=== PATIENT | male | born 1945 | race Asian ===

== ENCOUNTER 2017-02-13 15:56 | Inpatient (IN) | payer MEDICARE, MEDICAID ==
[~2017-02-13] VITALS: Ht 170.2 cm; Wt 77.1 kg
[~2017-02-13 15:56] MED LIST: UNOBMED
[2017-02-13 15:59] VITALS: BP 146/58
--- NOTE | 2017-02-13 16:55 | Diagnostic Imaging Report ---
Indication: Back pain Technique: Continuous helical transaxial imaging of the lumbar spine was obtained from the lung bases to the pubic symphysis. No IV contrast was administered. Coronal 2-D reformats were also obtained. Study obtained in a Siemens sensation [address] Total Dose length Product (DLP): [address] Dose Index Volume (CTDIvol): 2.25, 13.8 mGy Comparison: None Findings: There is evidence of acute, mild fracture of the superior plate of L2. There is no retropulsion associated with this. Fracture seen as a linear focus of radiolucency along the subchondral margin of the inferior endplate. This primarily involves the anterior aspect of the superior endplate. Bones are osteopenic. There is mild anterolisthesis at L4-5. There is interspinous hardware at this level. There is hypertrophy of the facets noted within the lower part of the lumbar spine moderate in degree. The aorta and iliac arteries show moderate calcification. Impression: Acute, mild superior endplate fracture of L2. No retropulsion. Osteopenia. Mild anterolisthesis L4 on L5. Other degenerative changes as described above. Atherosclerotic vascular disease The CT scanner at [facility] is accredited by the [employer] and the scans are performed using dose optimization techniques as appropriate to a performed exam including Automatic Exposure control.
[2017-02-13 17:05] LABS: BASOPHILS % (AUTO) 0.8 % (0.0-2.0); EOSINOPHILS % (AUTO) 0.1 % (0.0-3.0); LYMPHOCYTES % (AUTO) 6.7 % (20.0-45.0); MEAN CORPUSCULAR HEMOGLOBIN 32.5 PG (27.0-31.0); MEAN CORPUSCULAR HGB CONC 31.6 G/DL (32.0-36.0); MEAN CORPUSCULAR VOLUME 103 FL (80-99); MEAN PLATELET VOLUME 6.7 FL (6.5-10.1); NEUTROPHILS % (AUTO) 83.5 % (45.0-75.0); PLATELET COUNT 160 K/UL (150-450); RED BLOOD COUNT 3.68 M/UL (4.70-6.10); RED CELL DISTRIBUTION WIDTH 11.2 % (11.6-14.8); WHITE BLOOD COUNT 10.1 K/UL (4.8-10.8)
[2017-02-13 17:24] LABS: ALANINE AMINOTRANSFERASE 49 U/L (12-78); ALBUMIN/GLOBULIN RATIO 0.9 (1.0-2.7); ANION GAP 9 (5-15); ASPARTATE AMINO TRANSFERASE 58 U/L (15-37); CARBON DIOXIDE 24 MMOL/L (21-32); CHLORIDE 102 MMOL/L (98-107); CKMB 1.4 NG/ML (0.0-3.6); CREATININE 1.4 MG/DL (0.55-1.30); POTASSIUM 3.7 MMOL/L (3.5-5.1); SODIUM 135 MMOL/L (136-145); TOTAL PROTEIN 6.7 G/DL (6.4-8.2)
[2017-02-13 17:53] LABS: APPEARANCE,URINE VERY CLOUDY; KETONES,URINE 2+ (NEGATIVE); LEUKOCYTE ESTERASE ,URINE 3+ (NEGATIVE); NITRITE,URINE POSITIVE (NEGATIVE); PH,URINE 6 (4.5-8.0); PROTEIN,URINE 3+ (NEGATIVE); UROBILINOGEN,URINE 1 MG/DL (0.0-1.0)
[2017-02-13 18:08] LABS: BACTERIA,URINE MANY /HPF; RBC,URINE 15-20 /HPF (0 - 0); SQUAMOUS EPITHELIAL CELL,UR OCCASIONAL /LPF (NONE/OCC); WBC,URINE 60-80 /HPF (0 - 0)
[2017-02-13 18:10] VITALS: BP 138/67
[2017-02-13] MEDS ORDERED: Morphine Sulfate 2mg/ml Inj IVP PRN (18:15)
[2017-02-13] MEDS ORDERED: Albuterol/Ipratropium 3ml neb HHN PRN (18:15)
[2017-02-13] MEDS ORDERED: cefTRIAXone 1 GM in NS 55 ML IVPB ONE (18:15)
[2017-02-13] MEDS ORDERED: Miralax 17gm pkt ORAL PRN (18:15)
[2017-02-13 20:00] VITALS: BP 144/74
[2017-02-13] MEDS ORDERED: Vancomycin 1 GM in D5W 275 ML IVPB SCH (22:00)
[2017-02-13] MEDS: Cefepime HCl 2 GM in D5W 110 ML IV SCH (22:04)
[2017-02-13] MEDS: Heparin 5000 units/ml inj SUBQ SCH (22:12)
--- NOTE | 2017-02-13 23:04 | Emergency Room Report ---
History of Present Illness General Chief Complaint: Pain Source: EMS Present Illness HPI 71-year-old M presents ED for evaluation. Patient was seen at clinic today for UTI. In the clinic patient had a mechanical fall landing on his back. Patient presents with back pain. 10 out of 10, dull, nonradiating. Patient is febrile in triage. Denies chest pain or shortness of breath. No other aggravating relieving factors. Denies any other associated symptoms Allergies: Coded Allergies: No Known Allergies (Unverified , 02/13/17) Patient History Past Medical History: none Past Surgical History: none Pertinent Family History: none Social History: Denies: smoking, alcohol use, drug use Immunizations: UTD Reviewed Nursing Documentation: PMH: Agreed, PSxH: Agreed Review of Systems All Other Systems: negative except mentioned in HPI Physical Exam Vital Signs Date Time Temp Pulse Resp B/P (MAP) Pulse Ox O2 Delivery O2 Flow Rate FiO2 02/13/17 15:49 100.9 108 18 131/77 99 02/13/17 18:10 Room Air Sp02 EP Interpretation: reviewed, normal General Appearance: no apparent distress, alert, GCS 15, non-toxic, mild distress Head: normocephalic, atraumatic Eyes: bilateral eye normal inspection, bilateral eye PERRL ENT: hearing grossly normal, normal pharynx, no angioedema, normal voice Neck: full range of motion, supple/symm/no masses Respiratory: chest non-tender, lungs clear, normal breath sounds, speaking full sentences Cardiovascular #1: regular rate, rhythm, no edema Cardiovascular #2: 2+ carotid (R), 2+ carotid (L), 2+ radial (R), 2+ radial (L) , 2+ dorsalis pedis (R), 2+ dorsalis pedis (L) Gastrointestinal: normal bowel sounds, non tender, soft, non-distended, no guarding, no rebound Rectal: deferred Genitourinary: normal inspection, no CVA tenderness, vertebral tenderness Musculoskeletal: back normal, gait/station normal, normal range of motion, non- tender Neurologic: alert, oriented x3, responsive, motor strength/tone normal, sensory intact, speech normal Psychiatric: judgement/insight normal, memory normal, mood/affect normal, no suicidal/homicidal ideation Reflexes: 3+ bicep (R), 3+ bicep (L), 3+ tricep (R), 3+ tricep (L), 3+ knee (R) , 3+ knee (L) Skin: normal color, no rash, warm/dry, well hydrated Lymphatic: no adenopathy Medical Decision Making Diagnostic Impression: Primary Impression: L2 vertebral fracture Qualified Codes: S32.029B - Unspecified fracture of second lumbar vertebra, initial encounter for open fracture Additional Impressions: UTI (urinary tract infection) Qualified Codes: N39.0 - Urinary tract infection, site not specified Renal insufficiency ER Course Hospital Course 71-year-old male presents ED with fever, back pain status post fall Differential diagnosis includes- UTI, pyelonephritis, back spasm, fx Clinical course Patient placed on stretcher. After initial history and physical I ordered labs , IV fluids, pain medications and CT scan Labs - no leukocytosis, Cr 1.4, LFTs normal, UA + bacteria CT scan shows L2 fx no focal neurloogical deficits Antibiotics given. Patient will be admitted to Dr. López I feel this is a highly complex case requiring extensive working including EKG/ Rhythm strip, Xray/CT/US, Blood/urine lab work, repeat exams while in ED, and administration of strong opiates/narcotics for pain control, admission to hospital or close patient follow up. Diagnosis - L2 fx, UTI, renal insufficiency Admitted to floor in serious condition Labs Test 02/13/17 16:36 02/13/17 17:38 White Blood Count 10.1 K/UL (4.8-10.8) Red Blood Count 3.68 M/UL (4.70-6.10) Hemoglobin 12.0 G/DL (14.2-18.0) Hematocrit 37.9 % (42.0-52.0) Mean Corpuscular Volume 103 FL (80-99) Mean Corpuscular Hemoglobin 32.5 PG (27.0-31.0) Mean Corpuscular Hemoglobin Concent 31.6 G/DL (32.0-36.0) Red Cell Distribution Width 11.2 % (11.6-14.8) Platelet Count 160 K/UL (150-450) Mean Platelet Volume 6.7 FL (6.5-10.1) Neutrophils (%) (Auto) 83.5 % (45.0-75.0) Lymphocytes (%) (Auto) 6.7 % (20.0-45.0) Monocytes (%) (Auto) 9.0 % (1.0-10.0) Eosinophils (%) (Auto) 0.1 % (0.0-3.0) Basophils (%) (Auto) 0.8 % (0.0-2.0) Sodium Level 135 MMOL/L (136-145) Potassium Level 3.7 MMOL/L (3.5-5.1) Chloride Level 102 MMOL/L (98-107) Carbon Dioxide Level 24 MMOL/L (21-32) Anion Gap 9 (5-15) Blood Urea Nitrogen 20 mg/dL (7-18) Creatinine 1.4 MG/DL (0.55-1.30) Estimat Glomerular Filtration Rate mL/min (>60) Glucose Level 151 MG/DL (74-106) Lactic Acid Level 1.40 mmol/L (0.66-2.22) Calcium Level 9.0 MG/DL (8.5-10.1) Total Bilirubin 0.5 MG/DL (0.2-1.0) Aspartate Amino Transf (AST/SGOT) 58 U/L (15-37) Alanine Aminotransferase (ALT/SGPT) 49 U/L (12-78) Alkaline Phosphatase 48 U/L (46-116) Total Creatine Kinase 757 U/L (26-308) Creatine Kinase MB 1.4 NG/ML (0.0-3.6) Creatine Kinase MB Relative Index 0.1 Troponin I 0.008 ng/mL (0.000-0.056) Total Protein 6.7 G/DL (6.4-8.2) Albumin 3.1 G/DL (3.4-5.0) Globulin 3.6 g/dL Albumin/Globulin Ratio 0.9 (1.0-2.7) Urine Color Yellow Urine Appearance Very cloudy Urine pH 6 (4.5-8.0) Urine Specific [place] 1.010 (1.005-1.035) Urine Protein 3+ (NEGATIVE) Urine Glucose (UA) Negative (NEGATIVE) Urine Ketones 2+ (NEGATIVE) Urine Occult Blood 5+ (NEGATIVE) Urine Nitrite Positive (NEGATIVE) Urine Bilirubin Negative (NEGATIVE) Urine Urobilinogen 1 MG/DL (0.0-1.0) Urine Leukocyte Esterase 3+ (NEGATIVE) Urine RBC 15-20 /HPF (0 - 0) Urine WBC 60-80 /HPF (0 - 0) Urine Squamous Epithelial Cells Occasional /LPF Urine Bacteria Many /HPF (NONE) CT/MRI/US Diagnostic Results CT/MRI/US Diagnostic Results : Imaging Test Ordered: CT L spine Impression L2 fx Last Vital Signs Date Time Temp Pulse Resp B/P (MAP) Pulse Ox O2 Delivery O2 Flow Rate FiO2 02/13/17 20:00 98.8 83 19 144/74 95 Room Air Status: improved Disposition: ADMITTED INPATIENT Condition: Serious Referrals: NON PHYSICIAN (PCP) FAM SELLERS M.D. Feb 13, 2017 23:04
[2017-02-14 00:55] VITALS: BP 140/79
[2017-02-14 04:00] VITALS: BP 135/60
[2017-02-14 08:29] LABS: BASOPHILS % (AUTO) 0.8 % (0.0-2.0); EOSINOPHILS % (AUTO) 0.3 % (0.0-3.0); LYMPHOCYTES % (AUTO) 12.7 % (20.0-45.0); MEAN CORPUSCULAR HEMOGLOBIN 34.8 PG (27.0-31.0); MEAN CORPUSCULAR HGB CONC 34.3 G/DL (32.0-36.0); MEAN CORPUSCULAR VOLUME 102 FL (80-99); MEAN PLATELET VOLUME 7.8 FL (6.5-10.1); MONOCYTES % (AUTO) 11.6 % (1.0-10.0); NEUTROPHILS % (AUTO) 74.7 % (45.0-75.0); PLATELET COUNT 165 K/UL (150-450); RED BLOOD COUNT 3.93 M/UL (4.70-6.10); WHITE BLOOD COUNT 9.1 K/UL (4.8-10.8)
[2017-02-14 08:46] VITALS: BP 143/64
[2017-02-14] MEDS: Heparin 5000 units/ml inj SUBQ SCH ×2 (09:01→22:00)
[2017-02-14] MEDS: Cefepime HCl 2 GM in D5W 110 ML IV SCH (09:01)
[2017-02-14 09:37] LABS: ALANINE AMINOTRANSFERASE 14 U/L (12-78); ALBUMIN/GLOBULIN RATIO 0.7 (1.0-2.7); ANION GAP 12 (5-15); ASPARTATE AMINO TRANSFERASE 54 U/L (15-37); CALCIUM 8.2 MG/DL (8.5-10.1); CARBON DIOXIDE 21 MMOL/L (21-32); CHLORIDE 107 MMOL/L (98-107); CREATININE 1.1 MG/DL (0.55-1.30); POTASSIUM 3.6 MMOL/L (3.5-5.1); SODIUM 140 MMOL/L (136-145); TOTAL PROTEIN 6.7 G/DL (6.4-8.2)
[2017-02-14 11:51] VITALS: BP 136/68
--- NOTE | 2017-02-14 14:59 | History and Physical ---
History of Present Illness General Date patient seen: Feb 14, 2017 Reason for Hospitalization: Pain Present Illness HPI 71-year-old Male with hx of HTN, parkinson presented to ED for evaluation a back pain after a mechanical fall landing on his back. Patient presents with back pain. 10 out of 10, dull, nonradiating. Patient was febrile in ER . Denies chest pain or shortness of breath. No other aggravating relieving factors. Denies any other associated symptoms. He was diagnosed to have UTI/ sepsis and fracture of L2. Allergies: Coded Allergies: No Known Allergies (Unverified , 02/13/17) Medication History Miscellaneous Medications Unable to Obtain Medications (Unable To Obtain Meds), (Reported) Patient History Healthcare decision maker Resuscitation status Full Code Advanced Directive on File Past Medical/Surgical History Past Medical/Surgical History: (1) Parkinson disease (2) HTN (hypertension) Review of Systems All Other Systems: negative except mentioned in HPI Physical Exam General Appearance: WD/WN, no apparent distress Lines, tubes and drains: peripheral HEENT: normocephalic, atraumatic Neck: non-tender, normal alignment Respiratory/Chest: chest wall non-tender, lungs clear, normal breath sounds Breasts: no masses Cardiovascular/Chest: normal peripheral pulses, normal rate Abdomen: normal bowel sounds, non tender Genitourinary/Rectal: normal genital exam Extremities: normal range of motion Last 24 Hour Vital Signs Date Time Temp Pulse Resp B/P (MAP) Pulse Ox O2 Delivery O2 Flow Rate FiO2 02/14/17 11:51 98.3 75 20 136/68 95 Room Air 02/14/17 08:46 99.0 74 20 143/64 92 Room Air 02/14/17 04:00 98.6 75 20 135/60 95 Room Air 02/14/17 00:55 98.8 79 18 140/79 96 Room Air 02/13/17 20:00 98.8 83 19 144/74 95 Room Air 02/13/17 18:45 68 16 137/86 100 Room Air 02/13/17 18:15 100.2 02/13/17 18:10 100.2 75 19 138/67 97 Room Air 02/13/17 15:59 102.5 82 20 146/58 95 02/13/17 15:49 100.9 108 18 131/77 99 Intake and Output 02/14/17 02/15/17 19:00 07:00 Intake Total 340 ml Output Total 1100 ml Balance -760 ml Intake Oral 340 ml Output Urine Total 1100 ml # Voids 4 Laboratory Tests Test 02/13/17 16:36 02/13/17 17:38 02/14/17 06:17 White Blood Count 10.1 K/UL (4.8-10.8) 9.1 K/UL (4.8-10.8) Red Blood Count 3.68 M/UL (4.70-6.10) L 3.93 M/UL (4.70-6.10) L Hemoglobin 12.0 G/DL (14.2-18.0) L 13.7 G/DL (14.2-18.0) L Hematocrit 37.9 % (42.0-52.0) L 39.9 % (42.0-52.0) L Mean Corpuscular Volume 103 FL (80-99) H 102 FL (80-99) H Mean Corpuscular Hemoglobin 32.5 PG (27.0-31.0) H 34.8 PG (27.0-31.0) H Mean Corpuscular Hemoglobin Concent 31.6 G/DL (32.0-36.0) L 34.3 G/DL (32.0-36.0) Red Cell Distribution Width 11.2 % (11.6-14.8) L 11.0 % (11.6-14.8) L Platelet Count 160 K/UL (150-450) 165 K/UL (150-450) Mean Platelet Volume 6.7 FL (6.5-10.1) 7.8 FL (6.5-10.1) Neutrophils (%) (Auto) 83.5 % (45.0-75.0) H 74.7 % (45.0-75.0) Lymphocytes (%) (Auto) 6.7 % (20.0-45.0) L 12.7 % (20.0-45.0) L Monocytes (%) (Auto) 9.0 % (1.0-10.0) 11.6 % (1.0-10.0) H Eosinophils (%) (Auto) 0.1 % (0.0-3.0) 0.3 % (0.0-3.0) Basophils (%) (Auto) 0.8 % (0.0-2.0) 0.8 % (0.0-2.0) Sodium Level 135 MMOL/L (136-145) L 140 MMOL/L (136-145) Potassium Level 3.7 MMOL/L (3.5-5.1) 3.6 MMOL/L (3.5-5.1) Chloride Level 102 MMOL/L (98-107) 107 MMOL/L (98-107) Carbon Dioxide Level 24 MMOL/L (21-32) 21 MMOL/L (21-32) Anion Gap 9 (5-15) 12 (5-15) Blood Urea Nitrogen 20 mg/dL (7-18) H 14 mg/dL (7-18) Creatinine 1.4 MG/DL (0.55-1.30) H 1.1 MG/DL (0.55-1.30) Estimat Glomerular Filtration Rate mL/min (>60) mL/min (>60) Glucose Level 151 MG/DL (74-106) H 95 MG/DL (74-106) Lactic Acid Level 1.40 mmol/L (0.66-2.22) Calcium Level 9.0 MG/DL (8.5-10.1) 8.2 MG/DL (8.5-10.1) L Total Bilirubin 0.5 MG/DL (0.2-1.0) 0.5 MG/DL (0.2-1.0) Aspartate Amino Transf (AST/SGOT) 58 U/L (15-37) H 54 U/L (15-37) H Alanine Aminotransferase (ALT/SGPT) 49 U/L (12-78) 14 U/L (12-78) Alkaline Phosphatase 48 U/L (46-116) 49 U/L (46-116) Total Creatine Kinase 757 U/L (26-308) H Creatine Kinase MB 1.4 NG/ML (0.0-3.6) Creatine Kinase MB Relative Index 0.1 Troponin I 0.008 ng/mL (0.000-0.056) Total Protein 6.7 G/DL (6.4-8.2) 6.7 G/DL (6.4-8.2) Albumin 3.1 G/DL (3.4-5.0) L 2.8 G/DL (3.4-5.0) L Globulin 3.6 g/dL 3.9 g/dL Albumin/Globulin Ratio 0.9 (1.0-2.7) L 0.7 (1.0-2.7) L Urine Color Yellow Urine Appearance Very cloudy Urine pH 6 (4.5-8.0) Urine Specific [place] 1.010 (1.005-1.035) Urine Protein 3+ (NEGATIVE) H Urine Glucose (UA) Negative (NEGATIVE) Urine Ketones 2+ (NEGATIVE) H Urine Occult Blood 5+ (NEGATIVE) H Urine Nitrite Positive (NEGATIVE) H Urine Bilirubin Negative (NEGATIVE) Urine Urobilinogen 1 MG/DL (0.0-1.0) H Urine Leukocyte Esterase 3+ (NEGATIVE) H Urine RBC 15-20 /HPF (0 - 0) H Urine WBC 60-80 /HPF (0 - 0) H Urine Squamous Epithelial Cells Occasional /LPF Urine Bacteria Many /HPF (NONE) H Microbiology Date/Time Source Procedure Growth Status 02/13/17 17:38 Urine,Clean Catch Urine Culture - Preliminary Gram Negative Bacillus 1 Resulted Height (Feet): 5 Height (Inches): 7.00 Weight (Pounds): 170 Medications Current Medications Medications (Trade) Dose Ordered Sig/Tatiana Route PRN Reason Start Time Stop Time Status Last Admin Dose Admin Acetaminophen (Tylenol) 650 mg Q4H PRN ORAL T>100.5 02/13/17 18:15 03/15/17 18:14 Albuterol/ Ipratropium (DuoNeb 0.5-3(2.5)mg/3ml) 3 ml Q4H PRN HHN Shortness of Breath 02/13/17 18:15 02/18/17 18:14 Cefepime HCl 2 gm/ Dextrose 110 ml @ 220 mls/hr EVERY 12 HOURS IV 02/13/17 21:00 02/20/17 20:59 02/14/17 09:01 Heparin Sodium (Porcine) (Heparin 5000 units/ml) 5,000 units EVERY 12 HOURS SUBQ 02/13/17 21:00 03/15/17 20:59 02/14/17 09:01 Morphine Sulfate (Morphine Sulfate) 2 mg Q4H PRN IVP Moderate Pain (Pain Scale 4-6) 02/13/17 18:15 02/20/17 18:14 02/14/17 09:03 Ondansetron HCl (Zofran) 4 mg Q6H PRN IVP Nausea & Vomiting 02/13/17 18:15 03/15/17 18:14 Phenazopyridine HCl (Pyridium) 100 mg DAILYPRN PRN ORAL dysuria 02/13/17 18:15 03/15/17 18:14 02/14/17 09:15 Polyethylene Glycol (Miralax) 17 gm DAILYPRN PRN ORAL Constipation 02/13/17 18:15 03/15/17 18:14 Temazepam (Restoril) 15 mg HSPRN PRN ORAL Insomnia 02/13/17 21:00 02/20/17 20:59 Vancomycin HCl 1 gm/Dextrose 275 ml @ 183.3 mls/ hr Q24H IVPB 02/13/17 22:00 02/18/17 21:59 02/13/17 22:12 Assessment/Plan Problem List: (1) Sepsis ICD Codes: A41.9 - Sepsis, unspecified organism SNOMED: 76684923 (2) ATN (acute tubular necrosis) ICD Codes: N17.0 - Acute kidney failure with tubular necrosis SNOMED: 83162853 (3) UTI (urinary tract infection) ICD Codes: N39.0 - Urinary tract infection, site not specified SNOMED: 92257621 Qualifiers: Qualified Codes: N39.0 - Urinary tract infection, site not specified (4) L2 vertebral fracture ICD Codes: S32.029A - Unspecified fracture of second lumbar vertebra, initial encounter for closed fracture SNOMED: 48039212, 357487774 Qualifiers: Qualified Codes: S32.029B - Unspecified fracture of second lumbar vertebra, initial encounter for open fracture (5) Parkinson disease ICD Codes: G20 - Parkinson's disease SNOMED: 52307978 (6) HTN (hypertension) ICD Codes: I10 - Essential (primary) hypertension SNOMED: 69822854 Assessment/Plan iv abx check cultures IV fluids pain management DOMINIQUE EDWARDS Feb 14, 2017 14:59
[2017-02-14] MEDS ORDERED: Norco 5mg/325mg tab ORAL PRN (15:15)
--- NOTE | 2017-02-14 15:19 | Consultation ---
History of Present Illness General Date patient seen: Feb 14, 2017 Chief Complaint: Present Illness Allergies: Coded Allergies: No Known Allergies (Unverified , 02/13/17) Medication History Scheduled Cephalexin* (Keflex*), 500 MG ORAL EVERY 12 HOURS, (Reported) Miscellaneous Medications Unable to Obtain Medications (Unable To Obtain Meds), (Reported) Patient History Healthcare decision maker Resuscitation status Full Code Advanced Directive on File Physical Exam Last 24 Hour Vital Signs Date Time Temp Pulse Resp B/P (MAP) Pulse Ox O2 Delivery O2 Flow Rate FiO2 02/14/17 11:51 98.3 75 20 136/68 95 Room Air 02/14/17 08:46 99.0 74 20 143/64 92 Room Air 02/14/17 04:00 98.6 75 20 135/60 95 Room Air 02/14/17 00:55 98.8 79 18 140/79 96 Room Air 02/13/17 20:00 98.8 83 19 144/74 95 Room Air 02/13/17 18:45 68 16 137/86 100 Room Air 02/13/17 18:15 100.2 02/13/17 18:10 100.2 75 19 138/67 97 Room Air 02/13/17 15:59 102.5 82 20 146/58 95 02/13/17 15:49 100.9 108 18 131/77 99 Intake and Output 02/14/17 02/15/17 19:00 07:00 Intake Total 340 ml Output Total 1100 ml Balance -760 ml Intake Oral 340 ml Output Urine Total 1100 ml # Voids 4 Laboratory Tests Test 02/13/17 16:36 02/13/17 17:38 02/14/17 06:17 White Blood Count 10.1 K/UL (4.8-10.8) 9.1 K/UL (4.8-10.8) Red Blood Count 3.68 M/UL (4.70-6.10) L 3.93 M/UL (4.70-6.10) L Hemoglobin 12.0 G/DL (14.2-18.0) L 13.7 G/DL (14.2-18.0) L Hematocrit 37.9 % (42.0-52.0) L 39.9 % (42.0-52.0) L Mean Corpuscular Volume 103 FL (80-99) H 102 FL (80-99) H Mean Corpuscular Hemoglobin 32.5 PG (27.0-31.0) H 34.8 PG (27.0-31.0) H Mean Corpuscular Hemoglobin Concent 31.6 G/DL (32.0-36.0) L 34.3 G/DL (32.0-36.0) Red Cell Distribution Width 11.2 % (11.6-14.8) L 11.0 % (11.6-14.8) L Platelet Count 160 K/UL (150-450) 165 K/UL (150-450) Mean Platelet Volume 6.7 FL (6.5-10.1) 7.8 FL (6.5-10.1) Neutrophils (%) (Auto) 83.5 % (45.0-75.0) H 74.7 % (45.0-75.0) Lymphocytes (%) (Auto) 6.7 % (20.0-45.0) L 12.7 % (20.0-45.0) L Monocytes (%) (Auto) 9.0 % (1.0-10.0) 11.6 % (1.0-10.0) H Eosinophils (%) (Auto) 0.1 % (0.0-3.0) 0.3 % (0.0-3.0) Basophils (%) (Auto) 0.8 % (0.0-2.0) 0.8 % (0.0-2.0) Sodium Level 135 MMOL/L (136-145) L 140 MMOL/L (136-145) Potassium Level 3.7 MMOL/L (3.5-5.1) 3.6 MMOL/L (3.5-5.1) Chloride Level 102 MMOL/L (98-107) 107 MMOL/L (98-107) Carbon Dioxide Level 24 MMOL/L (21-32) 21 MMOL/L (21-32) Anion Gap 9 (5-15) 12 (5-15) Blood Urea Nitrogen 20 mg/dL (7-18) H 14 mg/dL (7-18) Creatinine 1.4 MG/DL (0.55-1.30) H 1.1 MG/DL (0.55-1.30) Estimat Glomerular Filtration Rate mL/min (>60) mL/min (>60) Glucose Level 151 MG/DL (74-106) H 95 MG/DL (74-106) Lactic Acid Level 1.40 mmol/L (0.66-2.22) Calcium Level 9.0 MG/DL (8.5-10.1) 8.2 MG/DL (8.5-10.1) L Total Bilirubin 0.5 MG/DL (0.2-1.0) 0.5 MG/DL (0.2-1.0) Aspartate Amino Transf (AST/SGOT) 58 U/L (15-37) H 54 U/L (15-37) H Alanine Aminotransferase (ALT/SGPT) 49 U/L (12-78) 14 U/L (12-78) Alkaline Phosphatase 48 U/L (46-116) 49 U/L (46-116) Total Creatine Kinase 757 U/L (26-308) H Creatine Kinase MB 1.4 NG/ML (0.0-3.6) Creatine Kinase MB Relative Index 0.1 Troponin I 0.008 ng/mL (0.000-0.056) Total Protein 6.7 G/DL (6.4-8.2) 6.7 G/DL (6.4-8.2) Albumin 3.1 G/DL (3.4-5.0) L 2.8 G/DL (3.4-5.0) L Globulin 3.6 g/dL 3.9 g/dL Albumin/Globulin Ratio 0.9 (1.0-2.7) L 0.7 (1.0-2.7) L Urine Color Yellow Urine Appearance Very cloudy Urine pH 6 (4.5-8.0) Urine Specific [place] 1.010 (1.005-1.035) Urine Protein 3+ (NEGATIVE) H Urine Glucose (UA) Negative (NEGATIVE) Urine Ketones 2+ (NEGATIVE) H Urine Occult Blood 5+ (NEGATIVE) H Urine Nitrite Positive (NEGATIVE) H Urine Bilirubin Negative (NEGATIVE) Urine Urobilinogen 1 MG/DL (0.0-1.0) H Urine Leukocyte Esterase 3+ (NEGATIVE) H Urine RBC 15-20 /HPF (0 - 0) H Urine WBC 60-80 /HPF (0 - 0) H Urine Squamous Epithelial Cells Occasional /LPF Urine Bacteria Many /HPF (NONE) H Microbiology Date/Time Source Procedure Growth Status 02/13/17 17:38 Urine,Clean Catch Urine Culture - Preliminary Gram Negative Bacillus 1 Resulted Height (Feet): 5 Height (Inches): 7.00 Weight (Pounds): 170 Medications Current Medications Medications (Trade) Dose Ordered Sig/Tatiana Route PRN Reason Start Time Stop Time Status Last Admin Dose Admin Acetaminophen (Tylenol) 650 mg Q4H PRN ORAL T>100.5 02/13/17 18:15 03/15/17 18:14 Albuterol/ Ipratropium (DuoNeb 0.5-3(2.5)mg/3ml) 3 ml Q4H PRN HHN Shortness of Breath 02/13/17 18:15 02/18/17 18:14 Amantadine HCl (Symmetrel) 100 mg TWICE A DAY ORAL 02/14/17 18:00 03/16/17 17:59 UNV Carbidopa/Levodopa (Sinemet 25/100) 1 ea THREE TIMES A DAY ORAL 02/14/17 18:00 03/16/17 17:59 UNV Cefepime HCl 2 gm/ Dextrose 110 ml @ 220 mls/hr EVERY 12 HOURS IV 02/13/17 21:00 02/20/17 20:59 02/14/17 09:01 Heparin Sodium (Porcine) (Heparin 5000 units/ml) 5,000 units EVERY 12 HOURS SUBQ 02/13/17 21:00 03/15/17 20:59 02/14/17 09:01 Latanoprost (Xalatan) 1 drop BEDTIME BOTH EYES 02/14/17 21:00 03/16/17 20:59 UNV Morphine Sulfate (Morphine Sulfate) 2 mg Q4H PRN IVP Moderate Pain (Pain Scale 4-6) 02/13/17 18:15 02/20/17 18:14 02/14/17 09:03 Non-Formulary Medication (Non-Formulary Med) 1 ea DAILY ORAL 02/15/17 09:00 03/17/17 08:59 UNV Ondansetron HCl (Zofran) 4 mg Q6H PRN IVP Nausea & Vomiting 02/13/17 18:15 03/15/17 18:14 Phenazopyridine HCl (Pyridium) 100 mg DAILYPRN PRN ORAL dysuria 02/13/17 18:15 03/15/17 18:14 02/14/17 09:15 Polyethylene Glycol (Miralax) 17 gm DAILYPRN PRN ORAL Constipation 02/13/17 18:15 03/15/17 18:14 Pramipexole (Mirapex) 0.5 mg TID ORAL 02/14/17 18:00 03/16/17 17:59 UNV Temazepam (Restoril) 15 mg HSPRN PRN ORAL Insomnia 02/13/17 21:00 02/20/17 20:59 Vancomycin HCl 1 gm/Dextrose 275 ml @ 183.3 mls/ hr Q24H IVPB 02/13/17 22:00 02/18/17 21:59 02/13/17 22:12 Assessment/Plan Assessment/Plan (1) Lumbar vertebral fracture (2) H/o Lumbar surgery (3) Lumbago seen dictated LARON BOYKIN Feb 14, 2017 15:19
[2017-02-14 15:28] VITALS: BP 125/54
[2017-02-14] MEDS ORDERED: Morphine Sulfate 2mg/ml Inj IVP PRN (16:00)
--- NOTE | 2017-02-14 17:09 | Diagnostic Imaging Report ---
Indication: Back pain, abnormal CT scan Technique: Sagittal T1 fast echo, axial and sagittal T2 FR FSE, sagittal STIR, axial T1 weighted images, axial precontrast T1 fat saturated, postcontrast sagittal and axial T1 fat-saturated images of the lumbar spine Comparison: Reference made to CT scan 02/13/2017 Findings: There is an anterior wedge compression fracture of the L2 vertebral body, resulting in approximately 30% anterior height loss impressions. Endplate. There is adjacent marrow edema, manifested by decreased T1 and increased STIR signal. There is also contrast enhancement of the area of edema on postcontrast images. There is evidence of an intravertebral cleft as well. There is no evidence of posterior retropulsion or violation of the posterior wall. There is interspinous hardware between the L4 and L5 spinous processes. This results in some local susceptibility artifact which could obscure findings. No definite associated contrast enhancement or edema. There is minimal anterior displacement of L4 on L5. The remainder the of bony alignment is normal. Remainder of the vertebral body heights are preserved. The disc spaces are preserved. The conus medullaris terminates at the L1-2 level. The remainder of the vertebral marrow signal is unremarkable. No other unusual contrast enhancement is demonstrated At L2-3, there is mild narrowing of the left neural foramen due to facet hypertrophy. No right-sided neural foraminal stenosis. No significant disc bulge or protrusion. At L3-4, there is mild right and moderate left neural foraminal stenosis due to facet hypertrophy. There is also circumferential annular bulge which protrudes slightly into the bilateral neural foramina, right greater than left, resulting and some contribution to the narrowing. Associated spinal stenosis. At L4-5, there is generalized circumferential annular bulge. This, in combination with short pedicles and facet hypertrophy results in mild narrowing of the spinal canal. The neural foramina are preserved. At L5-S1, there is mild circumferential annular bulge. This, in combination with facet hypertrophy, results in mild compromise of the neural foramina. There is also a small annular fissure in the posterior disc. There is also facet hypertrophy bilaterally. At the remaining levels, no significant disc bulge or protrusion, spinal stenosis, or neural foraminal stenosis. The included extraspinal soft tissues are unremarkable. Impression: Findings consistent with acute mild L2 compression fracture. This would be amenable to percutaneous intervention if clinically indicated. Multilevel degenerative changes as detailed on a level by level basis above Post surgical changes, as described
--- NOTE | 2017-02-14 17:18 | Consultation ---
History of Present Illness General Date patient seen: Feb 14, 2017 Time patient seen: 17:17 Chief Complaint: Pain Reason for Consultation: UTI Present Illness HPI 71 y/o M with hx of HTN, Parkinson Disease presents to ED on 02/13 for back pain after a mechanical fall landing on his back. Described pain as /10. In Ed noted to be febrile up to 102.5. Found to have L2 fracture. No leukocytosis. u/a with pyuria and ucx growing GNB. Denies CP, SOB, dysuria, n/v/d. Reported urinary frequencya. +intermittent dry cough. ID is consulted for possible UTI Allergies: Coded Allergies: No Known Allergies (Unverified , 02/13/17) Medication History Miscellaneous Medications Unable to Obtain Medications (Unable To Obtain Meds), (Reported) Patient History Healthcare decision maker Resuscitation status Full Code Advanced Directive on File Patient History Narrative PMhx: as above SHx: Denies: smoking, alcohol use, drug use Fhx: non contributory Review of Systems All Other Systems: negative except mentioned in HPI Physical Exam Physical Exam Narrative General Appearance: no apparent distress, alert HEENT: normocephalic, atraumatic, PERRL, no oral lesions Neck: full range of motion, supple Respiratory: chest non-tender, lungs clear, normal breath sounds Cardiovascular regular rate, rhythm, no edema Gastrointestinal: normal bowel sounds, non tender, soft, non-distended Genitourinary: normal inspection, no CVA tenderness, vertebral tenderness Neurologic: alert, oriented x3, responsive, Skin: normal color, no rash, warm/dry, well hydrated Last 24 Hour Vital Signs Date Time Temp Pulse Resp B/P (MAP) Pulse Ox O2 Delivery O2 Flow Rate FiO2 02/14/17 15:28 98.6 84 20 125/54 93 Room Air 02/14/17 11:51 98.3 75 20 136/68 95 Room Air 02/14/17 08:46 99.0 74 20 143/64 92 Room Air 02/14/17 04:00 98.6 75 20 135/60 95 Room Air 02/14/17 00:55 98.8 79 18 140/79 96 Room Air 02/13/17 20:00 98.8 83 19 144/74 95 Room Air 02/13/17 18:45 68 16 137/86 100 Room Air 02/13/17 18:15 100.2 02/13/17 18:10 100.2 75 19 138/67 97 Room Air Intake and Output 02/14/17 02/15/17 19:00 07:00 Intake Total 340 ml Output Total 1100 ml Balance -760 ml Intake Oral 340 ml Output Urine Total 1100 ml # Voids 4 Laboratory Tests Test 02/13/17 17:38 02/14/17 06:17 Urine Color Yellow Urine Appearance Very cloudy Urine pH 6 (4.5-8.0) Urine Specific Glynn 1.010 (1.005-1.035) Urine Protein 3+ (NEGATIVE) H Urine Glucose (UA) Negative (NEGATIVE) Urine Ketones 2+ (NEGATIVE) H Urine Occult Blood 5+ (NEGATIVE) H Urine Nitrite Positive (NEGATIVE) H Urine Bilirubin Negative (NEGATIVE) Urine Urobilinogen 1 MG/DL (0.0-1.0) H Urine Leukocyte Esterase 3+ (NEGATIVE) H Urine RBC 15-20 /HPF (0 - 0) H Urine WBC 60-80 /HPF (0 - 0) H Urine Squamous Epithelial Cells Occasional /LPF Urine Bacteria Many /HPF (NONE) H White Blood Count 9.1 K/UL (4.8-10.8) Red Blood Count 3.93 M/UL (4.70-6.10) L Hemoglobin 13.7 G/DL (14.2-18.0) L Hematocrit 39.9 % (42.0-52.0) L Mean Corpuscular Volume 102 FL (80-99) H Mean Corpuscular Hemoglobin 34.8 PG (27.0-31.0) H Mean Corpuscular Hemoglobin Concent 34.3 G/DL (32.0-36.0) Red Cell Distribution Width 11.0 % (11.6-14.8) L Platelet Count 165 K/UL (150-450) Mean Platelet Volume 7.8 FL (6.5-10.1) Neutrophils (%) (Auto) 74.7 % (45.0-75.0) Lymphocytes (%) (Auto) 12.7 % (20.0-45.0) L Monocytes (%) (Auto) 11.6 % (1.0-10.0) H Eosinophils (%) (Auto) 0.3 % (0.0-3.0) Basophils (%) (Auto) 0.8 % (0.0-2.0) Sodium Level 140 MMOL/L (136-145) Potassium Level 3.6 MMOL/L (3.5-5.1) Chloride Level 107 MMOL/L (98-107) Carbon Dioxide Level 21 MMOL/L (21-32) Anion Gap 12 (5-15) Blood Urea Nitrogen 14 mg/dL (7-18) Creatinine 1.1 MG/DL (0.55-1.30) Estimat Glomerular Filtration Rate mL/min (>60) Glucose Level 95 MG/DL (74-106) Calcium Level 8.2 MG/DL (8.5-10.1) L Total Bilirubin 0.5 MG/DL (0.2-1.0) Aspartate Amino Transf (AST/SGOT) 54 U/L (15-37) H Alanine Aminotransferase (ALT/SGPT) 14 U/L (12-78) Alkaline Phosphatase 49 U/L (46-116) Total Protein 6.7 G/DL (6.4-8.2) Albumin 2.8 G/DL (3.4-5.0) L Globulin 3.9 g/dL Albumin/Globulin Ratio 0.7 (1.0-2.7) L Microbiology Date/Time Source Procedure Growth Status 02/13/17 17:38 Urine,Clean Catch Urine Culture - Preliminary Gram Negative Bacillus 1 Resulted Height (Feet): 5 Height (Inches): 7.00 Weight (Pounds): 170 Medications Current Medications Medications (Trade) Dose Ordered Sig/Tatiana Route PRN Reason Start Time Stop Time Status Last Admin Dose Admin Acetaminophen (Tylenol) 650 mg Q4H PRN ORAL T>100.5 02/13/17 18:15 03/15/17 18:14 Acetaminophen/ Hydrocodone Bitart ([place] 5/325) 1 tab Q4H PRN ORAL Moderate Pain (Pain Scale 4-6) 02/14/17 15:15 02/21/17 15:14 Albuterol/ Ipratropium (DuoNeb 0.5-3(2.5)mg/3ml) 3 ml Q4H PRN HHN Shortness of Breath 02/13/17 18:15 02/18/17 18:14 Amantadine HCl (Symmetrel) 100 mg TWICE A DAY ORAL 02/14/17 18:00 03/16/17 17:59 Carbidopa/Levodopa (Sinemet 25/100) 1 ea THREE TIMES A DAY ORAL 02/14/17 18:00 03/16/17 17:59 Cefepime HCl 2 gm/ Dextrose 110 ml @ 220 mls/hr EVERY 12 HOURS IV 02/13/17 21:00 02/20/17 20:59 02/14/17 09:01 Heparin Sodium (Porcine) (Heparin 5000 units/ml) 5,000 units EVERY 12 HOURS SUBQ 02/13/17 21:00 03/15/17 20:59 02/14/17 09:01 Latanoprost (Xalatan) 1 drop BEDTIME BOTH EYES 02/14/17 21:00 03/16/17 20:59 Lidocaine (Lidoderm 5% PATCH) 1 patch Q24H TDERMAL 02/14/17 18:00 03/16/17 17:59 Morphine Sulfate (Morphine Sulfate) 2 mg Q4H PRN IVP severe pain 02/14/17 16:00 02/21/17 15:59 Non-Formulary Medication (Non-Formulary Med) 1 ea DAILY ORAL 02/15/17 09:00 03/17/17 08:59 UNV Ondansetron HCl (Zofran) 4 mg Q6H PRN IVP Nausea & Vomiting 02/13/17 18:15 03/15/17 18:14 Phenazopyridine HCl (Pyridium) 100 mg DAILYPRN PRN ORAL dysuria 02/13/17 18:15 03/15/17 18:14 02/14/17 09:15 Polyethylene Glycol (Miralax) 17 gm DAILYPRN PRN ORAL Constipation 02/13/17 18:15 03/15/17 18:14 Pramipexole (Mirapex) 0.5 mg TID ORAL 02/14/17 18:00 03/16/17 17:59 Temazepam (Restoril) 15 mg HSPRN PRN ORAL Insomnia 02/13/17 21:00 02/20/17 20:59 Vancomycin HCl 1 gm/Dextrose 275 ml @ 183.3 mls/ hr Q24H IVPB 02/13/17 22:00 02/18/17 21:59 02/13/17 22:12 Assessment/Plan Assessment/Plan Abx: IV Ceftriaxone x1 02/13 IV Vanco/Cefepime 02/13- Assesment: Fever- possible UTI, given frequency, pyuria -u/a WBC 80-90, nit +, leuk +3; ucx >100K GNB (ID and sensi pending) -Bcx p -no leukocytosis Back pain s/p fall with resultant L2 fracture CT lumbar spine: Acute, mild superior endplate fracture of L2. No retropulsion. CORAL , resolved HTN Parkinson Disease Plan: -d/C IV Vancomycin -Transition IV Cefepime to Ceftriaxone pending ucx -check Influenza -f/u cx -Monitor CBC/BMP, temperatures Thank you for this consultation. Will continue to follow along with you. Discussed with RN and family at bedside.. Tatum Rodriguez M.D. Feb 14, 2017 17:18
[2017-02-14] MEDS: Sinemet 25/100 tab ORAL SCH (17:47)
[2017-02-14 20:00] VITALS: BP 135/66
[2017-02-14] MEDS ORDERED: cefTRIAXone 1 GM in D5W 55 ML IVPB SCH (21:00)
[2017-02-14] MEDS ORDERED: Latanoprost 0.005% Opth 2.5ml Soln BOTH EYES SCH (21:00)
[2017-02-14] MEDS: Pramipexole 0.5mg tab ORAL SCH (22:00)
[2017-02-14] MEDS: Amantadine 100mg cap ORAL SCH (22:00)
[2017-02-15] VITALS: BP 137/72
[2017-02-15 04:40] VITALS: BP 145/60
--- NOTE | 2017-02-15 06:46 | Consultation ---
DATE OF CONSULTATION: 02/14/2017 PAIN MANAGEMENT CONSULTATION CONSULTING PHYSICIAN: Liliana Machado M.D. REFERRING PHYSICIAN: Mino López M.D. PHYSICIAN PODIATRIC ASSISTANT: Wiliam Meléndez CHIEF COMPLAINT: Low back pain. HISTORY OF PRESENT ILLNESS: The patient is a 71-year-old male, who is being seen on the Med/Surg floor of [facility] for initial comprehensive pain management consultation. The patient is in bed with family members at bedside and he is being interpreted due to being Frisian speaking. At this time, the patient reports that he had a mechanical fall landing on his back. He has pain of 10 out of 10 at its worst. He has been on morphine 2 mg intravenous, which has helped to reduce pain to a 4/10. At this time, the patient is comfortable in the bed. CT scan of the lumbar spine was done showing history of lumbar fusion with an acute L2 mild endplate fracture. At this time, the patient is comfortable. We discussed with the patient about adding Lidoderm patch, Titus, and ordering an MRI of lumbar spine to rule out any further pathology in lower back. PAST MEDICAL HISTORY: Parkinson disease, hypertension, and BPH. PAST SURGICAL HISTORY: Lumbar fusion and right knee surgery. MEDICATIONS: At this time, the patient is on morphine, Xalatan, amantadine, Sinemet, Mirapex, DuoNeb, Tylenol, MiraLAX, Zofran, and Pyridium. ALLERGIES: No known drug allergies. SOCIAL HISTORY: Denies smoking tobacco, drinking alcohol, or drug abuse. REVIEW OF SYSTEMS: Denies rash, fever, chills, sweating, dizziness, drowsiness, sore throat, or change in weight. No shortness of breath, chest pain, or cough. No nausea, vomiting, diarrhea, or blood in the stool or urine. No bowel or bladder incontinence. He is complaining of low back pain. PHYSICAL EXAMINATION: GENERAL: Alert, awake, and oriented x3. VITAL SIGNS: Blood pressure 136/68, heart rate 75, oxygen saturation 95%, respirations 20, and temperature is 98.3 degrees Fahrenheit. HEENT: PERRLA. NECK: Range of motion is full in all directions. No tenderness . LUNGS: Clear. HEART: Regular. ABDOMEN: Benign. BACK: Range of motion is decreased in flexion and extension. No tenderness to paracervical muscles. A well-healed surgical scar noted in the lumbar spine. EXTREMITIES: Upper extremity range of motion is full in all directions. Motor is intact. No cyanosis. No clubbing. No edema. Sensory is intact. Reflexes are not obtainable. No adenopathy. Lower extremity range of motion is full in all directions. Motor is intact. No cyanosis. No clubbing. No edema. Sensory is intact. Reflexes are not obtainable. No adenopathy. ASSESSMENT AND PLAN: This is a 71-year-old male with lumbago, history of lumbar surgery, and lumbar vertebral fracture. The patient will be continued on morphine 2 mg IV every 4 hours as needed for moderate pain and we started on Titus 5/325 one tablet every 4 hours as needed for moderate pain. We will order an MRI of the lumbar spine with and without contrast to rule out any further pathology in lower back and a Lidoderm patch to be applied to the lower back at the site of the pain 12 hours on and 12 hours off. The patient was discussed with Dr. Machado and Dr. Machado concurred. We will follow the patient. Thank you very much for the courtesy of this consultation. Liliana Machado M.D. MICHEAL Meléndez DR: GILBERTO JOB#: [id number] CC: ISMAEL
[2017-02-15] MEDS: Amantadine 100mg cap ORAL SCH (08:48)
[2017-02-15] MEDS: Sinemet 25/100 tab ORAL SCH ×2 (08:48→12:28)
[2017-02-15] MEDS: Pramipexole 0.5mg tab ORAL SCH ×2 (08:48→12:28)
[2017-02-15] MEDS: Heparin 5000 units/ml inj SUBQ SCH (08:49)
--- NOTE | 2017-02-15 11:05 | Infectious Diseases Prog Note ---
Assessment/Plan Assessment/Plan Abx: IV Ceftriaxone x1 02/13; 02/14- IV Vanco/Cefepime 02/13-02/14 Assesment: K.pna UTI- + frequency, pyuria -u/a WBC 80-90, nit +, leuk +3; ucx >100K K. pna (S. Ancef, Cipro, bactrim; R Amp; I Nitro) -Bcx NTD -no leukocytosis Fever -possibly multifactorial 2ry to UTI and fracture/stres response- improving Back pain s/p fall with resultant L2 fracture CT lumbar spine: Acute, mild superior endplate fracture of L2. No retropulsion. CORAL , resolved HTN Parkinson Disease Plan: -Continue Ceftriaxone (Abx d#07/12) for UTI; upon discharge can be transitioned to PO Keflex 500 mg bid -s/p 2d IV Vanco/Cefepime 02/14 -f/u Influenza -f/u final Bcx -Monitor CBC/BMP, temperatures Thank you for this consultation. Will continue to follow along with you. Discussed with RN. Subjective Allergies: Coded Allergies: No Known Allergies (Unverified , 02/13/17) Subjective afebrile in 36hrs no leukocytosis CORAL improving feeling better for possible discharge today Objective Vital Signs Last 24 Hour Vital Signs Date Time Temp Pulse Resp B/P (MAP) Pulse Ox O2 Delivery O2 Flow Rate FiO2 02/15/17 09:47 98.4 02/15/17 07:20 78 18 Room Air 02/15/17 04:40 98.4 73 18 145/60 94 Room Air 02/15/17 00:00 97.7 80 18 137/72 94 Room Air 02/14/17 20:00 97.6 86 19 135/66 95 Room Air 02/14/17 15:28 98.6 84 20 125/54 93 Room Air 02/14/17 11:51 98.3 75 20 136/68 95 Room Air Height (Feet): 5 Height (Inches): 7.00 Weight (Pounds): 170 Objective General Appearance: no apparent distress, alert HEENT: normocephalic, atraumatic, PERRL, no oral lesions Neck: full range of motion, supple Respiratory: chest non-tender, lungs clear, normal breath sounds Cardiovascular regular rate, rhythm, no edema Gastrointestinal: normal bowel sounds, non tender, soft, non-distended Genitourinary: normal inspection, no CVA tenderness, vertebral tenderness Neurologic: alert, oriented x3, responsive, Skin: normal color, no rash, warm/dry, well hydrated Microbiology Date/Time Source Procedure Growth Status 02/13/17 16:34 Blood Blood Culture - Preliminary NO GROWTH AFTER 24 HOURS Resulted 02/13/17 16:34 Blood Blood Culture - Preliminary NO GROWTH AFTER 24 HOURS Resulted 02/13/17 17:38 Urine,Clean Catch Urine Culture - Final Klebsiella Pneumoniae Complete reviewed Current Medications Medications (Trade) Dose Ordered Sig/Tatiana Route PRN Reason Start Time Stop Time Status Last Admin Dose Admin Acetaminophen (Tylenol) 650 mg Q4H PRN ORAL T>100.5 02/13/17 18:15 03/15/17 18:14 Acetaminophen/ Hydrocodone Bitart ([place] 5/325) 1 tab Q4H PRN ORAL Moderate Pain (Pain Scale 4-6) 02/14/17 15:15 02/21/17 15:14 02/15/17 08:48 Albuterol/ Ipratropium (DuoNeb 0.5-3(2.5)mg/3ml) 3 ml Q4H PRN HHN Shortness of Breath 02/13/17 18:15 02/18/17 18:14 Amantadine HCl (Symmetrel) 100 mg TWICE A DAY ORAL 02/14/17 18:00 03/16/17 17:59 02/15/17 08:48 Calcitonin Capron (Miacalcin) 1 sprays DAILY NASAL 02/15/17 10:00 03/17/17 09:59 02/15/17 09:54 Carbidopa/Levodopa (Sinemet 25/100) 1 ea THREE TIMES A DAY ORAL 02/14/17 18:00 03/16/17 17:59 02/15/17 08:48 Ceftriaxone Sodium 1 gm/ Dextrose 55 ml @ 110 mls/hr Q24H IVPB 02/14/17 21:00 02/21/17 20:59 02/14/17 21:55 Heparin Sodium (Porcine) (Heparin 5000 units/ml) 5,000 units EVERY 12 HOURS SUBQ 02/13/17 21:00 03/15/17 20:59 02/15/17 08:49 Latanoprost (Xalatan) 1 drop BEDTIME BOTH EYES 02/14/17 21:00 03/16/17 20:59 02/14/17 22:43 Lidocaine (Lidoderm 5% PATCH) 1 patch Q24H TDERMAL 02/14/17 18:00 03/16/17 17:59 02/14/17 17:47 Morphine Sulfate (Morphine Sulfate) 2 mg Q4H PRN IVP severe pain 02/14/17 16:00 02/21/17 15:59 Non-Formulary Medication (Non-Formulary Med) 1 ea DAILY ORAL 02/15/17 09:00 03/17/17 08:59 UNV Ondansetron HCl (Zofran) 4 mg Q6H PRN IVP Nausea & Vomiting 02/13/17 18:15 03/15/17 18:14 Phenazopyridine HCl (Pyridium) 100 mg DAILYPRN PRN ORAL dysuria 02/13/17 18:15 03/15/17 18:14 02/14/17 09:15 Polyethylene Glycol (Miralax) 17 gm DAILYPRN PRN ORAL Constipation 02/13/17 18:15 03/15/17 18:14 02/14/17 22:01 Pramipexole (Mirapex) 0.5 mg TID ORAL 02/14/17 18:00 03/16/17 17:59 02/15/17 08:48 Temazepam (Restoril) 15 mg HSPRN PRN ORAL Insomnia 02/13/17 21:00 02/20/17 20:59 Tatum Rodriguez M.D. Feb 15, 2017 11:05
[2017-02-15 12:00] VITALS: BP 112/57
[2017-02-15] MEDS ORDERED: CEPHALEXIN500 MG ORAL (12:51)
--- NOTE | 2017-02-15 13:49 | General Progress Note ---
Progress Note Progress Note Consulted for possible kyphoplasty. Patient is a 71-year-old male status post recent mechanical fall. MRI shows an acute compression fracture of the L2 vertebral body. I discussed with patient, his , and brother the possibility of kyphoplasty for treatment of the L2 compression fracture. However, patient states that he is feeling much better, is able to ambulate, and does not wish to have the procedure. I informed them that should the pain become intolerable, the kyphoplasty procedure can be performed as an outpatient, and to contact the radiology department should they choose to do so Case discussed by phone with YASSINE Gordon M.D. Feb 15, 2017 13:49
[2017-02-15] MEDS ORDERED: LIDODERM700 M1 TOPIC (14:53)
--- NOTE | 2017-02-15 14:56 | General Progress Note ---
Assessment/Plan Assessment/Plan (1) Lumbar vertebral fracture (2) H/o Lumbar surgery (3) Lumbago Pt will be continued on Morphine, [place] and Lidoderm patch. An Rx for Lidoderm patch written. Pt refuses kyphoplasty. D/w Dr. Machado. Subjective Date patient seen: Feb 15, 2017 Time patient seen: 01:30 - pm Allergies: Coded Allergies: No Known Allergies (Unverified , 02/13/17) Subjective REVIEW OF SYSTEMS: Denies rash, fever, chills, sweating, dizziness, drowsiness, sore throat, or change in weight. No shortness of breath, chest pain, or cough. No nausea, vomiting, diarrhea, or blood in the stool or urine. No bowel or bladder incontinence. He is complaining of low back pain. SUBJECTIVE: Patient is in no signs of pain and reports the Lidoderm patch has helped. MRI was reviewed and he refuses kyphoplasty and would like to go home once discharged by dispatcher clerk. Objective Last 24 Hour Vital Signs Date Time Temp Pulse Resp B/P (MAP) Pulse Ox O2 Delivery O2 Flow Rate FiO2 02/15/17 12:00 97.3 75 18 112/57 97 Room Air 02/15/17 09:47 98.4 02/15/17 07:20 78 18 Room Air 02/15/17 04:40 98.4 73 18 145/60 94 Room Air 02/15/17 00:00 97.7 80 18 137/72 94 Room Air 02/14/17 20:00 97.6 86 19 135/66 95 Room Air 02/14/17 15:28 98.6 84 20 125/54 93 Room Air Intake and Output 02/15/17 02/16/17 19:00 07:00 Intake Total 350 ml Balance 350 ml Intake Oral 350 ml # Voids 1 Height (Feet): 5 Height (Inches): 7.00 Weight (Pounds): 170 Objective GENERAL: Alert, awake, and oriented x3. HEENT: PERRLA. NECK: Range of motion is full in all directions. LUNGS: Clear. HEART: Regular. ABDOMEN: Benign. BACK: Range of motion is decreased in flexion and extension. No tenderness to paracervical muscles. A well-healed surgical scar noted in the lumbar spine. EXTREMITIES: No clubbing. No edema. Procedure: MRI L Spine w/wo Contrast Impression: there is some focal increased signal in the paraspinous musculature immediately posterior to the L2 transverse process. This is associated with some focal enhancement, likely indicates a focal muscle tear. There is some edema enhancement of the soft tissue immediately surrounding the L2 vertebral body, presumably edema secondary to the acute compression fracture. There is a left L5 laminotomy defect. This is better appreciated on the CT than on MRI Findings consistent with acute mild L2 compression fracture. This would be amenable to percutaneous intervention if clinically indicated. Multilevel degenerative changes as detailed on a level by level basis above Post surgical changes, as described LARON BOYKIN Feb 15, 2017 14:56
[2017-02-15] MEDS ORDERED: NS 275ml ONE (15:06)
[2017-02-15] MEDS ORDERED: Tubing IV Secondary IV ONE (15:06)
--- NOTE | 2017-02-15 17:31 | Consultation ---
DATE OF CONSULTATION: 02/15/2017 ORTHOPEDIC CONSULTATION REQUESTING PHYSICIAN: Mino López M.D. CHIEF COMPLAINT: Low back pain. HISTORY OF PRESENT ILLNESS: The patient is a pleasant 71-year-old gentleman with a mechanical fall lying on his back. He had significant pain and discomfort. He had imaging studies, which showed a possible fracture of L2 vertebral body and therefore, Orthopedic consultation obtained for further care and recommendation. PAST MEDICAL HISTORY: Parkinson's and hypertension. PAST SURGICAL HISTORY: None. MEDICATIONS: Reviewed in the medication reconciliation form. SOCIAL HISTORY: The patient does not smoke or drink. FAMILY HISTORY: Noncontributory. PHYSICAL EXAMINATION: GENERAL: The patient is comfortable. He is ambulating from the bathroom to the bed. He does have discomfort in low back. EXTREMITIES: No numbness or tingling in the lower extremities. EHL, FHL, tibialis anterior strength is 5/5. DIAGNOSTIC DATA: CT scan of the lumbar spine show a compression fracture L2 vertebral body measuring 30%, which is acute. ASSESSMENT: L2 acute vertebral body fracture. DISCUSSION: At this point, it is less than 30% compression fracture and what he needs is appropriate pain management with oral NSAIDs or narcotics. I recommend Miacalcin nose spray. He can be weightbearing as tolerated. It will take 6 to 12 weeks for the fracture to heal. He is not a candidate for vertebroplasty or kyphoplasty based on the mild compression. He is neurovascularly intact. He can follow up as an outpatient if he has continued issues for referral to Physical Therapy in approximately six weeks. Foreign Grajeda M.D. DR: NOHEMI JOB#: [id number] CC: Mino López M.D.; Fax#: [phone]
--- NOTE | 2017-02-15 18:39 | Pulmonology Progress Note ---
Assessment/Plan Problems: (1) Sepsis (2) ATN (acute tubular necrosis) (3) UTI (urinary tract infection) (4) L2 vertebral fracture (5) Parkinson disease (6) HTN (hypertension) Assessment/Plan imrpovng wants to go home declined kyphoplasty Subjective ROS Limited/Unobtainable: No Constitutional: Reports: no symptoms HEENT: Repors: no symptoms Respiratory: Reports: no symptoms Allergies: Coded Allergies: No Known Allergies (Unverified , 02/13/17) Objective Last 24 Hour Vital Signs Date Time Temp Pulse Resp B/P (MAP) Pulse Ox O2 Delivery O2 Flow Rate FiO2 02/15/17 12:00 97.3 75 18 112/57 97 Room Air 02/15/17 09:47 98.4 02/15/17 07:20 78 18 Room Air 02/15/17 04:40 98.4 73 18 145/60 94 Room Air 02/15/17 00:00 97.7 80 18 137/72 94 Room Air 02/14/17 20:00 97.6 86 19 135/66 95 Room Air Intake and Output 02/15/17 02/16/17 19:00 07:00 Intake Total 600 ml Balance 600 ml Intake Oral 600 ml # Voids 4 # Bowel Movements 1 General Appearance: WD/WN, no acute distress HEENT: normocephalic, atraumatic Cardiovascular: normal peripheral pulses, normal rate Abdomen: normal bowel sounds, no organomegaly, no scars Extremities: no cyanosis Skin: no ulcers Neurologic/Psychiatric: no motor/sensory deficits Microbiology Date/Time Source Procedure Growth Status 02/13/17 16:34 Blood Blood Culture - Preliminary NO GROWTH AFTER 24 HOURS Resulted 02/13/17 16:34 Blood Blood Culture - Preliminary NO GROWTH AFTER 24 HOURS Resulted 02/13/17 17:38 Urine,Clean Catch Urine Culture - Final Klebsiella Pneumoniae Complete DOMINIQUE EDWARDS Feb 15, 2017 18:39
--- NOTE | 2017-02-16 00:46 | Consultation ---
DATE OF CONSULTATION: 02/13/2017 HISTORY OF PRESENT ILLNESS: The patient is a 71-year-old gentleman with INCOMPLETE DICTATION. Foreign Grajeda M.D. DR: NOHEMI JOB#: [id number] CC:
--- NOTE | 2017-02-16 11:30 | Discharge Summary ---
Discharge Summary Hospital Course Date of Admission Feb 13, 2017 at 17:46 Date of Discharge Feb 15, 2017 at 15:07 Admitting Diagnosis L2FX, UTI HPI Pankaj Baltazar is a 71 year old male who was admitted on Feb 13, 2017 at 17:46 for L2 Fracture, Urinary Tract Infection Hospital Course [id number] Discharge Discharge Disposition Patient was discharged to Home (01) Discharge Diagnoses: Alfreda Arguelles NP Feb 16, 2017 11:30
--- NOTE | 2017-02-17 03:17 | Discharge Summary 2 SIG ---
DATE OF ADMISSION: 02/13/2017 DATE OF DISCHARGE: 02/15/2017 CONSULTANTS: 1. Tatum Rodriguez M.D. 2. Liliana Machado M.D. 3. Foreign Grajeda M.D. BRIEF HOSPITAL COURSE: The patient is a 71-year-old male with history of hypertension and Parkinson disease, presented to ED for evaluation of back pain after a mechanical fall landing on his back. The patient presented with back pain, 10/10, which is dull and nonradiating. On evaluation at ED, he was noted to be febrile, temperature of 100.9. CAT scan of the lumbar spine showed an acute L2 fracture. Blood work showed no leukocytosis. Creatinine was elevated to 1.4. Urinalysis was with bacteria. There was no neurological deficits noted. He was started on IV antibiotics and was admitted to the medical floor for evaluation of fever and fracture. He was initially started on IV vancomycin and cefepime. Cefepime was transitioned to ceftriaxone. Acute kidney injury resolved with IV hydration. He was given pain management consisting of morphine and [place]. Orthopedic evaluation was done. MRI of the spine showed findings consistent with acute mild L2 compression fracture. He had less than 30% compression fracture and the patient would need pain management with oral NSAIDs or narcotics. He was advised can be weightbearing as tolerated as it would take 6 to 12 weeks for fracture to heal. The patient is not a candidate for vertebroplasty or kyphoplasty based on the mild compression. Neurovascular, he was intact and was recommended to continue with physical therapy for approximately six weeks. He was then cleared for discharge. Urine eventually grew Klebsiella pneumoniae. He was discharged on p.o. Keflex. FINAL DIAGNOSES: 1. Acute L2 vertebral fracture. 2. Acute tubular necrosis. 3. Urinary tract infection with Klebsiella. 4. Sepsis. 5. Parkinson disease. 6. Hypertension. DISPOSITION: The patient was discharged home with a front wheel walker. DISCHARGE MEDICATIONS: Refer to medication list. FOLLOWUP: The patient was advised to follow up with PMD. Mino López M.D. I have been assigned to dictate discharge summary on this account and I was not involved in the patient's management. Alfreda Arguelles N.P. DR: AKHIL JOB#: [id number] CC: [email or web address]
== END 2017-02-15 15:07 | disposition home or self-care (01) | DRG 871 ==
LOC: EDBD 15:56 → EMR 16:57 → 3E 17:46 → EDBEDREQ 18:59
DX: A41.9 Sepsis, unspecified organism (principal); N17.0 Acute kidney failure with tubular necrosis; S32.029A Unspecified fracture of second lumbar vertebra, initial encounter for closed fracture; N39.0 Urinary tract infection, site not specified; G20 Parkinson's disease; I10 Essential (primary) hypertension; B96.1 Klebsiella pneumoniae [K. pneumoniae] as the cause of diseases classified elsewhere; W01.0XXA Fall on same level from slipping, tripping and stumbling without subsequent striking against object, initial encounter; Y92.019 Unspecified place in single-family (private) house as the place of occurrence of the external cause; Y99.8 Other external cause status; Z98.1 Arthrodesis status; Z53.29 Procedure and treatment not carried out because of patient's decision for other reasons
CPT/HCPCS: 36415; 72131; 72158; 80053; 81003; 82550; 82553; 83605; 84484; 85025; 87040; 87086; 87181; 94664; 99285; A9585